=== PATIENT | female | born 1995 | race Caucasian/White ===

== ENCOUNTER → 2017-07-04 | Outpatient (CLI) | payer SELFPAY ==
[2017-07-04 17:20] LABS: BASO % 0.5 % (0.0-2.0); EOS # 0.2 (0.0-0.7); EOS % 2.1 % (0-4.0); GRAN # 3.4 (1.4-6.5); GRAN % 45.6 % (42.2-75.2); HEMATOCRIT 37.4 % (37.0-47.0); HEMOGLOBIN 12.9 g/dl (12.5-16.0); LYMPH # 3.4 (1.2-3.4); MEAN CELL VOLUME 86 fl (80.0-100.0); MEAN CORPUSCULAR HEMOGLOBIN 30 pg (27.0-31.0); MEAN CORPUSCULAR HGB CONC 35 g/dl (33.0-37.0); MEAN PLATELET VOLUME 10.8 fl (7.4-10.4); MONO # 0.5 (0.1-0.6); MONO % 6.5 % (1.7-9.3); PLATELET COUNT 251 K/mm3 (130-400); RED BLOOD COUNT 4.37 M/mm3 (4.10-5.30); REDCELL DISTRIBUTION WIDTH-CV 11.5 % (11.5-14.5)
== END ==
LOC: COL.LAB 16:58
PROVIDERS: Family Medicine
DX: F32.9 Major depressive disorder, single episode, unspecified (principal)

== ENCOUNTER → 2018-11-21 | Outpatient (CLI) | payer SELFPAY | LOC: COL.RAD 14:25 | DX: S00.93XA Contusion of unspecified part of head, initial encounter (principal) ==